=== PATIENT | male | born 1945 ===

== ENCOUNTER 2023-04-14 07:00 | Inpatient (IN) | payer OTHER ==
[~2023-04-14] VITALS: Ht 167.6 cm; Wt 85.7 kg
[2023-04-14 08:15] LABS: PH,URINE 5.5 (5.0-8.0); URINE APPEARANCE Clear; URINE BILIRRUBIN Negative (NEGATIVE); URINE BLOOD Negative; URINE COLOR Yellow; URINE GLUCOSE Negative (NEGATIVE); URINE LEUKOCYTE Negative; URINE NITRATE Negative; URINE PROTEIN 30 (NEGATIVE); URINE UROBILINOGEN 0.2 E.U./dl
[2023-04-14 08:17] LABS: URINE BACTERIA 7.5 uL (0.0-1933); URINE EPITHELIAL CELLS 1.8 uL (0.0-38.8); URINE RBC 3.8 uL (0.0-20.8); URINE WBC 7.8 uL (0.0-23.2)
[2023-04-14 08:18] LABS: HEMATOCRIT 34.9 % (39.0-48.0); HEMOGLOBIN 11.2 g/dL (13-16.00); MEAN CELL VOLUME 87.2 fL (80.0-100.00); MEAN CORPUSCULAR HEMOGLOBIN 28.1 pg (27.00-32.0); MEAN CORPUSCULAR HGB CONC 32.3 g/dl (32.0-36.0); PLATELET COUNT 201 K/uL (150-450); RED CELL DISTRIBUTION WIDTH 14.4 % (11.5-14.5)
[2023-04-14 08:36] LABS: INR 0.97; PARTIAL THROMBOPLASTIN TIME 25.5 SECONDS (22.0-34.0); PROTHROMBIN TIME 10.2 SECONDS (9.0-11.5)
[2023-04-14] MEDS ORDERED: PLAVIX75 MG PO (08:38)
[2023-04-14] MEDS ORDERED: SYNTHROID75 MCG PO (08:39)
[2023-04-14] MEDS ORDERED: JANUMET 50-1,01 EACH PO (08:39)
[2023-04-14] MEDS ORDERED: CREST PO (08:40)
[2023-04-14] MEDS ORDERED: LIPITOR40 M1 PO (08:41)
[2023-04-14 08:43] LABS: ALBUMIN 3.8 gm/dL (3.4-5.0); BILIRUBIN TOTAL 0.43 mg/dL (0.3-1.2); CALCIUM 9.2 mg/dL (8.5-10.1); CREATININE SERUM 1.37 mg/dL (0.70-1.30); GFR 50.52; GLOBULINA 4.1 G/DL (2.4-3.5); POTASSIUM 5.06 mEq/L (3.5-5.1); TOTAL PROTEIN 7.9 gm/dL (6.4-8.2)
[2023-04-19 11:20] LABS: HEMATOCRIT 31.1 % (39.0-48.0); HEMOGLOBIN 10.4 g/dL (13-16.00); RED BLOOD COUNT 3.59 M/uL (4.00-6.00)
[2023-04-20 06:32] LABS: HEMATOCRIT 32.9 % (39.0-48.0); HEMOGLOBIN 11.1 g/dL (13-16.00); MEAN CELL VOLUME 85.4 fL (80.0-100.00); MEAN CORPUSCULAR HEMOGLOBIN 28.9 pg (27.00-32.0); MEAN CORPUSCULAR HGB CONC 33.8 g/dl (32.0-36.0); PLATELET COUNT 190 K/uL (150-450); RED BLOOD COUNT 3.85 M/uL (4.00-6.00); RED CELL DISTRIBUTION WIDTH 14.9 % (11.5-14.5)
[2023-04-21] MEDS ORDERED: BACTRIM DS TAB1 EACH PO (06:31)
[2023-04-21] MEDS ORDERED: INTEGRA PLUS C1 EACH PO (06:31)
[2023-04-21] MEDS ORDERED: XARELTO10 MG PO (06:31)
[2023-04-21] MEDS ORDERED: OXYC1TAB9 PO (06:31)
[2023-04-21 07:08] LABS: HEMATOCRIT 30.6 % (39.0-48.0); HEMOGLOBIN 10.3 g/dL (13-16.00); MEAN CELL VOLUME 85.9 fL (80.0-100.00); MEAN CORPUSCULAR HEMOGLOBIN 28.9 pg (27.00-32.0); MEAN CORPUSCULAR HGB CONC 33.6 g/dl (32.0-36.0); PLATELET COUNT 193 K/uL (150-450); RED BLOOD COUNT 3.56 M/uL (4.00-6.00); RED CELL DISTRIBUTION WIDTH 14.5 % (11.5-14.5)
== END 2023-04-21 15:14 | DRG 470 ==
LOC: SURH 04-19 04:20 → O/R 04-19 04:20 → SURG 04-19 07:00 → SURH 04-19 10:52
PROVIDERS: ADMIT Orthopaedic Surgery Sports Medicine; ATTEND Orthopaedic Surgery Sports Medicine
PROC: 0SRC0J9 Replacement of Right Knee Joint with Synthetic Substitute, Cemented, Open Approach (ICD-10-PCS; principal; 2023-04-19 07:00)
DX: M17.11 Unilateral primary osteoarthritis, right knee (principal); I10 Essential (primary) hypertension; E11.9 Type 2 diabetes mellitus without complications; E03.9 Hypothyroidism, unspecified